=== PATIENT | male | born 1990 | race Two or more races ===

== ENCOUNTER 2016-10-11 09:18 | Emergency (ER) | payer OTHER ==
[2016-10-11] MEDS ORDERED: ONDANSETRON 4 MG/2 ML VIAL IVP ONE ×2 (09:43→11:14)
[2016-10-11] MEDS ORDERED: NS 1,000 ML IV ONE (09:43)
[2016-10-11] MEDS ORDERED: MECLIZINE HCL 25 MG TAB PO ONE (09:44)
--- NOTE | 2016-10-11 09:47 | EDPHY ---
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 Vomiting HISTORY OF PRESENT ILLNESS: Patient complains of sudden onset of dizziness this morning. It was abrupt in onset. He feels as though everything is spinning. He has no headache. No chest pain. No syncope. No shortness of breath. Symptoms are significantly worse if he moves his head or attempts to move. They improve minimally if he holds still and closes his eyes. No fever or chills. No neck pain or stiffness. No unilateral complaints. No facial droop. No slurred speech. No other associated complaints or modifying factors. REVIEW OF SYSTEMS: Ten systems reviewed and are negative unless otherwise noted in the HPI PAST MEDICAL HISTORY: Denies any medical history SOCIAL HISTORY: Nonsmoker. Occasional alcohol. 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 Keeping his eyes closed until last open the Head: normocephalic, atraumatic Eyes: Pupils equal and round, no conjunctival pallor or injection. Horizontal nystagmus noted. No vertical nystagmus. EOMs are intact. No dysconjugate gaze ENT, Mouth: Mucous membranes moist. Airway patent. Ears are clear. Neck: Normal inspection, supple, non-tender. No meningismus or rigidity Respiratory: Lungs are clear to auscultation. No wheezing, rhonchi or crackles Cardiovascular: Regular rate and rhythm. No murmur. Pulses intact distally symmetrically Gastrointestinal: Abdomen is soft and nontender Back: non-tender, no bony abnormalities Neurological: GCS 15. A&O, nonfocal, strength is symmetric in all 4 limbs Skin: Warm and dry, no rash. No petechiae or purpura Extremities: Nontender, no pedal edema Psychiatric: Mood and affect normal DIFFERENTIAL DIAGNOSES: Including but not limited to benign positional paroxysmal vertigo, dizziness, nausea vomiting, otitis media MDM: 9:44 a.m. Nausea vomiting that is positional. This does have an appearance of vertigo. No chest pain. Vital signs are stable. I have ordered IV fluid, Zofran and meclizine. Once his nausea improved I will re-evaluate and perform maneuvers for vertigo. 10:15 a.m. I have re-evaluated the patient. He starting to feel better. Nausea persists. No vomiting labs are within acceptable limits for his scenario. 11:15 a.m. Patient ambulated to the restroom without difficulty. He says he was feeling better, but that he then began vomiting in the restroom. I have ordered more Zofran and a dose of IV Valium. 12:00 p.m. I have re-evaluated the patient. He is feeling significantly better after the Valium. No longer nauseated. Ambulating without difficulty. Discharged home with this as well. Follow up with ENT and primary care. Return here for worsening symptoms, any headache, any unilateral complaints. SUPERVISION: Patient was evaluated in conjunction with the supervising physician. Please see their note for details. (Patrick Brady) Constitutional: Initial Vital Signs Temperature (C) 36.5 C 10/11/16 09:26 Heart Rate 101 H 10/11/16 09:26 Respiratory Rate 16 10/11/16 09:26 Blood Pressure 127/84 H 10/11/16 09:26 O2 Sat (%) 98 10/11/16 09:26 O2 Delivery Mode Room Air Allergies/Adverse Reactions: No Known Allergies Allergy (Verified 10/11/16 09:26) Home Medications: Medication Instructions Recorded Diazepam [Valium 5 MG (*)] 5 mg PO TID PRN #15 tab 10/11/16 Meclizine HCl [Meclizine HCl 25 mg 25 mg PO BID PRN #14 tab 10/11/16 (RX,OTC)] Ondansetron Odt [Zofran Odt 4 mg 4 mg PO Q6 PRN #12 tab 10/11/16 (*)] Medical Decision Making ED Course/Re-evaluation: The patient was evaluated and managed by the physician creative assistant. I have reviewed this chart and I agree with the findings and plan of care as documented , as indicated by my signature. I am the secondary supervising physician. ( Marbella Gale) - Data Points Laboratory Results: Laboratory Results 10/11/16 08:30 10/11/16 08:30 Medications Given: Discontinued Medications Diazepam (Valium Injection) 5 mg IVP EDNOW ONE Stop: 10/11/16 11:16 Last Admin: 10/11/16 11:21 Dose: 5 mg Sodium Chloride (Ns) 1,000 mls @ 0 mls/hr IV ONCE ONE; Wide Open PRN Reason: Protocol Stop: 10/11/16 09:44 Last Admin: 10/11/16 09:50 Dose: 1,000 mls Meclizine HCl (Meclizine Hcl) 25 mg PO EDNOW ONE Stop: 10/11/16 09:45 Last Admin: 10/11/16 09:50 Dose: 25 mg Ondansetron HCl (Zofran) 4 mg IVP EDNOW ONE Stop: 10/11/16 09:44 Last Admin: 10/11/16 09:51 Dose: 4 mg Ondansetron HCl (Zofran) 4 mg IVP EDNOW ONE Stop: 10/11/16 11:15 Last Admin: 10/11/16 11:26 Dose: 4 mg Departure - Departure Disposition: Home, Routine, Self-Care Clinical Impression: Vertigo, Nausea & vomiting Condition: Good Instructions: Vertigo (ED) Additional Instructions: 1. Medications as discussed 2. Follow up with Ear Nose and Throat physician 3. Follow up primary care physician 4. Return here for worsening symptoms, headache, fever, unilateral complaints, chest pain 1.Medicamentos sunita lo hablamos. 2.Kellie forrest latisha de seguimiento con un especialista de [place], [place] y [place]. 3.Kellie forrest latisha de seguimiento con barney doctor de mundora. 4.Regrese por empeoramiento de sntomas, dolor de hortencia, fiebre, quejas de solamente un lado del cuerpo, dolor de pecho. Referrals: NONE *PRIMARY CARE P,. [Primary Care Provider] - As per Instructions Ricardo Whitaker MD [Medical Doctor] - As per Instructions Abram Santizo [place] [place] - As per Instructions Stand Alone Forms: Work Excuse Prescriptions: Diazepam [Valium 5 MG (*)] 5 mg PO TID PRN #15 tab PRN Reason: Dizziness Meclizine HCl [Meclizine HCl 25 mg (RX,OTC)] 25 mg PO BID PRN #14 tab PRN Reason: Dizziness Ondansetron Odt [Zofran Odt 4 mg (*)] 4 mg PO Q6 PRN #12 tab PRN Reason: Nausea/Vomiting, Use 1st Print Language: Romansh
[2016-10-11 09:57] LABS: % IMMATURE GRANULYOCYTES 0.8 % (0.0-1.1); ABSOLUTE IMMATURE GRANULOCYTES 0.11 10^3/uL (0.00-0.10); ADD DIFF? NO; ADD MORPH? NO; ADD SCAN? NO; ATYPICAL LYMPHOCYTE FLAG 0 (0-99); FRAGMENT RBC FLAG 0 (0-99); HEMATOCRIT 51.4 % (40.0-51.0); LEFT SHIFT FLG 10 (0-99); LIPEMIA HEMOLYSIS FLAG 90 (0-99); MEAN CELL HEMOGLOBIN 31.4 pg (27.9-34.1); MEAN CELL VOLUME 89.7 fL (81.5-99.8); MEAN PLATELET VOLUME 10.5 fL (8.7-11.7); PLATELET CLUMPS FLAG 0 (0-99); PLATELET COUNT 241 10^3/uL (150-400); RED BLOOD CELL COUNT 5.73 10^6/uL (4.40-6.38); RED CELL DISTRIBUTION WIDTH 12.3 % (11.5-15.2)
[2016-10-11 10:03] LABS: ANION GAP 13 mEq/L (8-16); CALCIUM 9.6 mg/dL (8.5-10.4); CARBON DIOXIDE 20 mEq/l (22-31); CHLORIDE 107 mEq/L (97-110); CREATININE 0.9 mg/dL (0.7-1.3); GLOMERULAR FILTRATION RATE > 60; GLUCOSE 138 mg/dL (70-100); SODIUM 140 mEq/L (134-144)
[2016-10-11] MEDS ORDERED: DIAZEPAM 10 MG/2 ML SYR IVP ONE (11:15)
[2016-10-11 12:14] VITALS: BP 131/80; PULSE 94; RESP 16; TEMP 97.5; O2SAT 98
== END 2016-10-11 12:38 | disposition home or self-care (01) ==
DX: R42 Dizziness and giddiness (principal); R11.2 Nausea with vomiting, unspecified
CPT/HCPCS: 96374; J2405